=== PATIENT | female | born 1980 | race Caucasian/White ===

== ENCOUNTER 2019-03-03 13:59 | Inpatient (IN) | payer SELFPAY ==
--- NOTE | 2019-03-03 14:36 | ER Document Report ---
ED Medical Screen (RME) - General Chief Complaint: Skin Problem Stated Complaint: ABSCESS ON BACK Time Seen by Provider: 03/03/19 14:33 Mode of Arrival: Ambulatory Information source: Patient Notes: 38-year-old female presented to ED for a large lesion to the center of her middle back. She states she had a little bump about 4 days ago when she accidentally scratched it now she has a large lesion that is very swollen painful and erythematous. Patient is alert oriented respirations regular and unlabored speaking in full sentences. She states she does smoke half pack a day does not drink or do any drugs. She denies any past medical history of anything. I have greeted and performed a rapid initial assessment of this patient. A comprehensive ED assessment and evaluation of the patient, analysis of test results and completion of medical decision making process will be conducted by an additional ED providers. Physical Exam - Vital signs Vitals: Temp Pulse Resp BP Pulse Ox 97.8 F 106 H 16 120/88 H 97 03/03/19 14:03 03/03/19 14:03 03/03/19 14:03 03/03/19 14:03 03/03/19 14:03 Course - Vital Signs Vital signs: Temp Pulse Resp BP Pulse Ox 97.8 F 106 H 16 120/88 H 97 03/03/19 14:03 03/03/19 14:03 03/03/19 14:03 03/03/19 14:03 03/03/19 14:03
--- NOTE | 2019-03-03 15:25 | RADIOLOGY REPORT (SQ) ---
EXAM DESCRIPTION: U/S EXTREMITY NONVASCULAR LTD COMPLETED DATE/TIME: 03/03/2019 3:09 pm REASON FOR STUDY: lesion to middle of back COMPARISON: None. TECHNIQUE: Dynamic and static grayscale images acquired of the localized site of clinical concern an d recorded on PACS. Additional selected color Doppler and spectral images recorded. SITE OF CONCERN: Midline back LIMITATIONS: None. FINDINGS: SKIN AND SUBCUTANEOUS TISSUES: There is ill-defined heterogeneous echogenicity within the subcutaneous tissues of the midline back corresponding to the palpable abnormality. There is areas o f internal vascularity without definitive hyperemia. No evidence of well-formed focal drainable maia ection. OTHER: No other significant finding. IMPRESSION: Ill-defined heterogeneous area within the subcutaneous tissues of the midline back corre sponding to palpable abnormality. No evidence of well-formed drainable collection. Findings may rep resent cellulitis or phlegmon although underlying lesion is not entirely excluded. Recommend clinical correlation and short-term follow-up as required. TECHNICAL DOCUMENTATION: JOB ID: [id number] [employer]- All Rights Reserved Reading location - IP/workstation name: [email or web address]
[2019-03-03 15:58] LABS: ABSOLUTE BASOPHILS # (AUTO) 0.1 10^3/uL (0.0-0.2); ABSOLUTE EOSINOPHILS # (AUTO) 0.2 10^3/uL (0.0-0.6); ABSOLUTE LYMPHOCYTES (AUTO) 1.2 10^3/uL (0.5-4.7); ABSOLUTE MONOCYTES (AUTO) 0.8 10^3/uL (0.1-1.4); ABSOLUTE NEUT (AUTO) 14.6 10^3/uL (1.7-8.2); BASOPHILS % (AUTO) 0.3 % (0-2); EOSINOPHILS % (AUTO) 1.4 % (0-6); HEMATOCRIT 39.9 % (36.0-47.0); HEMOGLOBIN 13.6 g/dL (12.0-15.5); LYMPHOCYTES % (AUTO) 7.1 % (13-45); MEAN CORPUSCULAR HEMOGLOBIN 29.9 pg (27.0-33.4); MEAN CORPUSCULAR VOLUME 88 fl (80-97); MONOCYTES % (AUTO) 4.5 % (3-13); PLATELET COUNT 421 10^3/uL (150-450); RED BLOOD COUNT 4.54 10^6/uL (3.72-5.28); RED CELL DISTRIBUTION WIDTH 12.5 % (11.5-14.0); SEGMENTED NEUTROPHILS % (AUTO) 86.7 % (42-78); TOTAL CELLS COUNTED % (AUTO) 100 %; WHITE BLOOD COUNT 16.8 10^3/uL (4.0-10.5)
[2019-03-03 16:09] LABS: AMORPHOUS SEDIMENT,URINE TRACE /HPF; APPEARANCE,URINE CLOUDY; BILIRUBIN,URINE NEGATIVE (NEGATIVE); COLOR,URINE YELLOW; GLUCOSE, URINE NEGATIVE (NEGATIVE); KETONES,URINE NEGATIVE (NEGATIVE); LEUKOCYTE ESTERASE,URINE MODERATE (NEGATIVE); NITRITE,URINE NEGATIVE (NEGATIVE); PROTEIN,URINE NEGATIVE (NEGATIVE); URINE SPECIFIC GRAVITY 1.028; UROBILINOGEN,URINE NEGATIVE mg/dL (<2.0)
[2019-03-03 16:17] LABS: ALBUMIN 3.7 g/dL (3.5-5.0); ALKALINE PHOSPHATASE 80 U/L (38-126); ANION GAP 8 (5-19); ASPARTATE AMINO TRANSFERASE 13 U/L (14-36); BILIRUBIN,DIRECT 0.3 mg/dL (0.0-0.4); BILIRUBIN,TOTAL 0.3 mg/dL (0.2-1.3); BLOOD UREA NITROGEN 16 mg/dL (7-20); CALCIUM 9.1 mg/dL (8.4-10.2); CARBON DIOXIDE 28 mmol/L (22-30); CHLORIDE 103 mmol/L (98-107); GLUCOSE 79 mg/dL (75-110); POTASSIUM 4.1 mmol/L (3.6-5.0); TOTAL PROTEIN 6.9 g/dL (6.3-8.2)
[2019-03-03] MEDS ORDERED: MORPHINE SULFATE 10 MG/ML INJ IM ONE (18:24)
--- NOTE | 2019-03-03 18:25 | ER Document Report ---
HPI - HPI Time Seen by Provider: 03/03/19 14:33 Pain Level: 5 Notes: Patient is an otherwise healthy 30-year-old female presenting with concerns for abscess to her back. Patient reports this area initially started as a small pimple and has now evolved into a large area of pain. Patient denies history of abscesses in the past. Denies any IV drug use. Denies any fever but reports she has had chills. - REPRODUCTIVE Reproductive: DENIES: : Past Medical History - General Information source: Patient - Social History Smoking Status: Current Every Day Smoker Chew tobacco use (# tins/day): No Frequency of alcohol use: None Drug Abuse: None Family History: Reviewed & Not Pertinent Patient has suicidal ideation: No Patient has homicidal ideation: No - Medical History Medical History: Negative Surgical Hx: Negative - Immunizations Immunizations up to date: Yes Vertical Provider Document - CONSTITUTIONAL Notes: PHYSICAL EXAMINATION: GENERAL: Well-appearing, well-nourished and in no acute distress. HEAD: Atraumatic, normocephalic. EYES: Pupils equal round and reactive to light, extraocular movements intact, conjunctiva are normal. ENT: Nares patent, oropharynx clear without exudates. Moist mucous membranes. NECK: Normal range of motion, supple without lymphadenopathy LUNGS: Breath sounds clear to auscultation bilaterally and equal. No wheezes rales or rhonchi. HEART: Regular rate and rhythm without murmurs ABDOMEN: Soft, nontender, nondistended abdomen. No guarding, no rebound. No masses appreciated. Female : deferred Musculoskeletal: Normal range of motion, no pitting or edema. No cyanosis. NEUROLOGICAL: Cranial nerves grossly intact. Normal speech, normal gait. Normal sensory, motor exams PSYCH: Normal mood, normal affect. SKIN: Large area of induration with fluctuance noted to spinal area near T12. Erythema surrounding this. - INFECTION CONTROL TRAVEL OUTSIDE OF THE [place] IN LAST 30 DAYS: No Course - Re-evaluation Re-evalutation: Laboratory 03/03/19 03/03/19 03/03/19 14:36 14:36 14:36 WBC 16.8 H RBC 4.54 Hgb 13.6 Hct 39.9 MCV 88 MCH 29.9 MCHC 34.0 RDW 12.5 Plt Count 421 Lymph % (Auto) 7.1 L [place] % (Auto) 4.5 Eos % (Auto) 1.4 Baso % (Auto) 0.3 Absolute Neuts (auto) 14.6 H Absolute Lymphs (auto) 1.2 Absolute Monos (auto) 0.8 Absolute Eos (auto) 0.2 Absolute Basos (auto) 0.1 Seg Neutrophils % 86.7 H Sodium 139.2 Potassium 4.1 Chloride 103 Carbon Dioxide 28 Anion Gap 8 BUN 16 Creatinine 0.60 Est GFR ( Amer) > 60 Est GFR (MDRD) Non-Af > 60 Glucose 79 Calcium 9.1 Total Bilirubin 0.3 Direct Bilirubin 0.3 Neonat Total Bilirubin Not Reportable Neonat Direct Bilirubin Not Reportable Neonat Indirect Bili Not Reportable AST 13 L ALT 12 Alkaline Phosphatase 80 Total Protein 6.9 Albumin 3.7 Urine Color YELLOW Urine Appearance CLOUDY Urine pH 5.0 Ur Specific [place] 1.028 Urine Protein NEGATIVE Urine Glucose (UA) NEGATIVE Urine Ketones NEGATIVE Urine Blood NEGATIVE Urine Nitrite NEGATIVE Urine Bilirubin NEGATIVE Urine Urobilinogen NEGATIVE Ur Leukocyte Esterase MODERATE H Urine WBC (Auto) 35 Urine RBC (Auto) 22 Urine Bacteria (Auto) 1+ Squamous Epi Cells Auto 11 Amorphous Sediment Auto TRACE Urine Mucus (Auto) RARE Urine Ascorbic Acid NEGATIVE Extremity Ultrasound 03/03/19 14:37 IMPRESSION: Ill-defined heterogeneous area within the subcutaneous tissues of the midline back corresponding to palpable abnormality. No evidence of well- formed drainable collection. Findings may represent cellulitis or phlegmon although underlying lesion is not entirely excluded. Recommend clinical correlation and short-term follow-up as required. Abdomen/Pelvis CT 03/03/19 19:31 IMPRESSION: Inflammatory changes in the lower back soft tissues with a developing 3.4 cm fluid collection in the soft tissues posterior to the L2 level. Surgical list, Dr. Breen graciously accepted the patient for admission to his service. - Vital Signs Vital signs: Temp Pulse Resp BP Pulse Ox 97.5 F 98 16 103/66 97 03/03/19 17:32 03/03/19 17:32 03/03/19 17:32 03/03/19 17:32 03/03/19 17:32 - Laboratory Result Diagrams: 03/03/19 14:36 03/03/19 14:36 Laboratory results interpreted by me: 03/03/19 03/03/19 03/03/19 14:36 14:36 14:36 WBC 16.8 H Lymph % (Auto) 7.1 L Absolute Neuts (auto) 14.6 H Seg Neutrophils % 86.7 H AST 13 L Ur Leukocyte Esterase MODERATE H Discharge - Discharge Clinical Impression: Abscess Condition: Stable Disposition: ADMITTED INPATIENT Admitting Provider: Surgicalist - Dr. Breen
[2019-03-03] MEDS ORDERED: ONDANSETRON HCL INJ/PF 4 MG/2 ML SDV IV PRN (20:05)
--- NOTE | 2019-03-03 20:05 | PDOC H&P ---
History of Present Illness Admission Date/PCP: 03/03/19 Patient complains of: back pain History of Present Illness: RAJIV MCNAMARA is a 38 year old female healthy with a 2-3 day hx of back pain, redness, drainage, low grade fever which is identified as a low right back skin abscess. An US has been done and is negative for fluid collection, possible phlegmon. Social History Smoking Status: Current Every Day Smoker Electronic Cigarette use?: No Family History Family History: Reviewed & Not Pertinent Parental Family History Reviewed: No Children Family History Reviewed: No Sibling(s) Family History Reviewed.: No Medication/Allergy Home Medications: No Home Medications 03/03/19 Allergies/Adverse Reactions: No Known Allergies Allergy (Verified 03/03/19 14:34) Physical Exam Vital Signs: Temp Pulse Resp BP Pulse Ox 97.5 F 98 16 103/66 97 03/03/19 17:32 03/03/19 17:32 03/03/19 17:32 03/03/19 17:32 03/03/19 17:32 Intake & Output 03/02/19 03/03/19 03/04/19 06:59 06:59 06:59 Weight 39.5 kg General appearance: PRESENT: no acute distress Head exam: PRESENT: atraumatic Eye exam: PRESENT: EOMI Mouth exam: PRESENT: moist, neck supple Neck exam: PRESENT: full ROM Respiratory exam: PRESENT: clear to auscultation samir Cardiovascular exam: PRESENT: RRR GI/Abdominal exam: PRESENT: soft Skin exam: PRESENT: other - Back= large 10 cm diameter area in the rigt lower back with necrotic area, tender, edematous, erythematous Results Laboratory Results: 03/03/19 14:36 03/03/19 14:36 03/03/19 03/03/19 03/03/19 14:36 14:36 14:36 WBC 16.8 H RBC 4.54 Hgb 13.6 Hct 39.9 MCV 88 MCH 29.9 MCHC 34.0 RDW 12.5 Plt Count 421 Seg Neutrophils % 86.7 H Sodium 139.2 Potassium 4.1 Chloride 103 Carbon Dioxide 28 Anion Gap 8 BUN 16 Creatinine 0.60 Est GFR ( Amer) > 60 Glucose 79 Calcium 9.1 Total Bilirubin 0.3 AST 13 L Alkaline Phosphatase 80 Total Protein 6.9 Albumin 3.7 Urine Color YELLOW Urine Appearance CLOUDY Urine pH 5.0 Ur Specific [place] 1.028 Urine Protein NEGATIVE Urine Glucose (UA) NEGATIVE Urine Ketones NEGATIVE Urine Blood NEGATIVE Urine Nitrite NEGATIVE Ur Leukocyte Esterase MODERATE H Urine WBC (Auto) 35 Urine RBC (Auto) 22 Impressions: Extremity Ultrasound 03/03/19 14:37 IMPRESSION: Ill-defined heterogeneous area within the subcutaneous tissues of the midline back corresponding to palpable abnormality. No evidence of well- formed drainable collection. Findings may represent cellulitis or phlegmon although underlying lesion is not entirely excluded. Recommend clinical correlation and short-term follow-up as required. Assessment & Plan - Diagnosis (1) Pyogenic skin abscess due to bacteria Is this a current diagnosis for this admission?: Yes - Plan Summary Plan Summary: A/ Right lower back skin abscess Leukocytosis P/ Admit NPO after MN I&D right lower back skin abscess IV Vanco IV Zosyn
[2019-03-03] MEDS ORDERED: PIPERACILLIN/TAZOBACTAM 3.375 GM VIAL IV ONE (20:07)
[2019-03-03] MEDS ORDERED: VANCOMYCIN HCL INJ 1000 MG VIAL IV ONE (20:07)
[2019-03-03] MEDS ORDERED: VANCOMYCIN HCL 0 MG in DEXTROSE 5%-WATER 250 ML IV NR (20:15)
[2019-03-03] MEDS ORDERED: PIPERACILLIN/TAZOBACTAM 3.375 GM VIAL IV SCH (21:00)
[2019-03-03] MEDS: NORMAL SALINE 1000 ML 1,000 ML IV PRN (21:12)
--- NOTE | 2019-03-03 21:16 | RADIOLOGY REPORT (SQ) ---
CT ABDOMEN PELVIS WITH IV CONTRAST EXAM DATE: 03/03/2019 7:31 PM CDT HISTORY: Back pain. Evaluate for abscess. COMPARISON: None. TECHNIQUE: CT scan of the abdomen and pelvis was performed with IV contrast. This exam was performed according to our departmental dose-optimization program, which includes automated exposure control, adjustment of the mA and/or kV according to patient size and/or use of iterative reconstruction technique. FINDINGS: The lung bases are clear. No pleural or pericardial effusions. There is no hiatal hernia. The liver, spleen, pancreas, gallbladder, adrenal glands, and kidneys are unremarkable. No urinary stones are seen. The pelvic organs are also unremarkable. No small bowel obstruction. The appendix is not seen. There is no evidence of diverticulitis. No intraperitoneal free fluid or free air is identified. The aorta is normal caliber. No acute bony findings are seen. There is no pathologic body wall hernia. There is subcutaneous edema with skin thickening overlying the lower back soft tissues. Additionally, there is a 3.4 x 1.7 cm developing fluid collection near the midline soft tissues of the L2 level. This is best seen on axial images 25 and sagittal image 45. IMPRESSION: Inflammatory changes in the lower back soft tissues with a developing 3.4 cm fluid collection in the soft tissues posterior to the L2 level.
[2019-03-03] MEDS: MORPHINE SULFATE 10 MG/ML INJ IV PRN (21:57)
[2019-03-03] MEDS ORDERED: VANCOMYCIN HCL 750 MG in DEXTROSE 5%-WATER 250 ML IV ONE (22:00)
[2019-03-03] MEDS ORDERED: NICOTINE 14 MG/24 HR PATCH.TD24 TD ONE (22:45)
[2019-03-04] MEDS ORDERED: ACETAMINOPHEN 1,000 MG/100 ML RTUPB IV ONE ×2 (00:45→12:05)
[2019-03-04] MEDS: MORPHINE SULFATE 10 MG/ML INJ IV PRN ×2 (01:57→06:24)
[2019-03-04] MEDS: PIPERACILLIN SODIUM/TAZOBACTAM 3.375 GM in NORMAL SALINE 100 ML IV SCH ×4 (02:01→21:08)
[2019-03-04 06:16] LABS: ABSOLUTE BASOPHILS # (AUTO) 0.1 10^3/uL (0.0-0.2); ABSOLUTE EOSINOPHILS # (AUTO) 0.3 10^3/uL (0.0-0.6); ABSOLUTE MONOCYTES (AUTO) 0.8 10^3/uL (0.1-1.4); ABSOLUTE NEUT (AUTO) 16.1 10^3/uL (1.7-8.2); BASOPHILS % (AUTO) 0.3 % (0-2); EOSINOPHILS % (AUTO) 1.4 % (0-6); HEMATOCRIT 35.9 % (36.0-47.0); HEMOGLOBIN 12.2 g/dL (12.0-15.5); LYMPHOCYTES % (AUTO) 5.4 % (13-45); MEAN CORPUSCULAR HEMOGLOBIN 29.9 pg (27.0-33.4); MEAN CORPUSCULAR HGB CONC 34.1 g/dL (32.0-36.0); MEAN CORPUSCULAR VOLUME 88 fl (80-97); MONOCYTES % (AUTO) 4.7 % (3-13); PLATELET COUNT 348 10^3/uL (150-450); RED BLOOD COUNT 4.09 10^6/uL (3.72-5.28); RED CELL DISTRIBUTION WIDTH 12.3 % (11.5-14.0); SEGMENTED NEUTROPHILS % (AUTO) 88.2 % (42-78); TOTAL CELLS COUNTED % (AUTO) 100 %; WHITE BLOOD COUNT 18.3 10^3/uL (4.0-10.5)
[2019-03-04] MEDS: ACETAMINOPHEN 1,000 MG/100 ML RTUPB IV SCH ×4 (06:24→23:43)
[2019-03-04 06:39] LABS: ANION GAP 8 (5-19); BLOOD UREA NITROGEN 9 mg/dL (7-20); CALCIUM 8.6 mg/dL (8.4-10.2); CARBON DIOXIDE 27 mmol/L (22-30); CHLORIDE 101 mmol/L (98-107); GLUCOSE 120 mg/dL (75-110); POTASSIUM 3.9 mmol/L (3.6-5.0)
[2019-03-04] MEDS: NORMAL SALINE 1000 ML 1,000 ML IV PRN (08:31)
[2019-03-04] MEDS ORDERED: NICOTINE 14 MG/24 HR PATCH.TD24 TD SCH (10:00)
[2019-03-04] MEDS ORDERED: FENTANYL CITRATE INJ/PF 100 MCG/2 ML AMPUL ONE (10:33)
[2019-03-04] MEDS ORDERED: MIDAZOLAM 2 MG/2 ML INJ ONE (10:33)
[2019-03-04] MEDS ORDERED: PROPOFOL INJ 200 MG/20 ML VIAL IV ONE (10:34)
[2019-03-04] MEDS ORDERED: BUPIVACAINE HCL 0.5 % INJ/PF 30 ML SDV ONE (10:51)
[2019-03-04] MEDS ORDERED: DIPHENHYDRAMINE HCL 50 MG/ML VIAL IV PRN (11:23)
[2019-03-04] MEDS ORDERED: FENTANYL CITRATE INJ/PF 100 MCG/2 ML AMPUL IV PRN ×3 (11:23)
[2019-03-04] MEDS ORDERED: PROMETHAZINE HCL INJ 25 MG/1 ML VIAL IV PRN ×2 (11:23)
[2019-03-04] MEDS ORDERED: OXYCODONE-ACETAMINOPHEN 5-325 MG TABLET PO PRN ×2 (11:23)
[2019-03-04] MEDS ORDERED: MORPHINE SULFATE 10 MG/ML INJ IV PRN (11:23)
[2019-03-04] MEDS ORDERED: MEPERIDINE HCL/PF INJ 25 MG/1 ML DISP.SYRIN IV PRN (11:23)
[2019-03-04] MEDS ORDERED: NEOMY/BACITRAC ZN/POLY OINT 15 GM ONE (11:26)
--- NOTE | 2019-03-04 12:23 | Operative Report ---
Operative Report DATE OF SURGERY: 03/04/19 PREOPERATIVE DIAGNOSIS: Right lower back skin abscess POSTOPERATIVE DIAGNOSIS: Same, necrosis of right lower back skin OPERATION: Incision and drainage of right lower back abscess SURGEON: BELEM GONZALEZ ANESTHESIA: Other - 20 mL of 0.5% Marcaine TISSUE REMOVED OR ALTERED: Necrotic skin right lower back COMPLICATIONS: None ESTIMATED BLOOD LOSS: Less than 10 mL QUANTITATIVE BLOOD LOSS: 10 INTRAOPERATIVE FINDINGS: Large right lower back subcutaneous abscess with purulent fluid collection as well as necrosis of the overlying skin PROCEDURE: The procedure was done in the operating room, the patient was placed in a left lateral position with the right side elevated, the area of the abscess was prepped and draped in usual fashion. The proposed line of incision was outlined with a surgical marker, a skin incision was then made with a #15 blade, and a moderate amount of pus was obtained. This was sent for aerobic anaerobic culture and Gram stain. The incision was then extended further. The skin overlying the abscess cavity was found to be necrotic as well as the tissue below it. The necrotic skin was then excised with a final wound defect of approximately 4 cm in diameter. Following this, the abscess cavity was irrigated with normal saline, debrided with a curette, and local bleeders were cauterized. The abscess bed was packed with triple antibiotic ointment, covered with Surgicel and perform; dry 4 x 4's, ABDs, and tape were applied. The patient tolerated procedure well, was extubated, and transferred to the recovery room in satisfactory conditions.
[2019-03-04] MEDS: NEOMY/BACITRAC ZN/POLY OINT 15 GM TP SCH ×2 (15:21→21:09)
[2019-03-04] MEDS: KETOROLAC TROMETHAMINE INJ/PF 30 MG/1 ML SDV IV PRN ×2 (16:31→23:43)
[2019-03-04] MEDS ORDERED: LIDOCAINE 0.5% INJ-PF (5 MG/ML) 50 ML SDV ONE (16:42)
[2019-03-04] MEDS: DOCUSATE SODIUM 100 MG CAPSULE PO SCH (17:39)
[2019-03-04] MEDS ORDERED: NICOTINE 14 MG/24 HR PATCH.TD24 TD ONE (19:30)
[2019-03-04] MEDS: VANCOMYCIN HCL 750 MG in DEXTROSE 5%-WATER 250 ML IV SCH (21:08)
[2019-03-04] MEDS: TRAMADOL HCL 50 MG TABLET PO PRN (21:09)
[2019-03-05] MEDS: PIPERACILLIN SODIUM/TAZOBACTAM 3.375 GM in NORMAL SALINE 100 ML IV SCH ×4 (03:17→21:20)
[2019-03-05 04:32] LABS: ABSOLUTE EOSINOPHILS # (AUTO) 0.2 10^3/uL (0.0-0.6); ABSOLUTE LYMPHOCYTES (AUTO) 1.2 10^3/uL (0.5-4.7); ABSOLUTE MONOCYTES (AUTO) 0.6 10^3/uL (0.1-1.4); ABSOLUTE NEUT (AUTO) 10.1 10^3/uL (1.7-8.2); BASOPHILS % (AUTO) 0.3 % (0-2); EOSINOPHILS % (AUTO) 1.6 % (0-6); HEMATOCRIT 33.8 % (36.0-47.0); HEMOGLOBIN 11.3 g/dL (12.0-15.5); LYMPHOCYTES % (AUTO) 9.5 % (13-45); MEAN CORPUSCULAR HEMOGLOBIN 29.4 pg (27.0-33.4); MEAN CORPUSCULAR HGB CONC 33.5 g/dL (32.0-36.0); MEAN CORPUSCULAR VOLUME 88 fl (80-97); MONOCYTES % (AUTO) 5.3 % (3-13); PLATELET COUNT 325 10^3/uL (150-450); RED BLOOD COUNT 3.86 10^6/uL (3.72-5.28); RED CELL DISTRIBUTION WIDTH 12.2 % (11.5-14.0); SEGMENTED NEUTROPHILS % (AUTO) 83.3 % (42-78); TOTAL CELLS COUNTED % (AUTO) 100 %; WHITE BLOOD COUNT 12.1 10^3/uL (4.0-10.5)
[2019-03-05 04:54] LABS: ANION GAP 6 (5-19); BLOOD UREA NITROGEN 9 mg/dL (7-20); CALCIUM 8.4 mg/dL (8.4-10.2); CARBON DIOXIDE 27 mmol/L (22-30); CHLORIDE 105 mmol/L (98-107); GLUCOSE 96 mg/dL (75-110); POTASSIUM 3.9 mmol/L (3.6-5.0)
[2019-03-05] MEDS: ACETAMINOPHEN 1,000 MG/100 ML RTUPB IV SCH (06:01)
[2019-03-05] MEDS: NEOMY/BACITRAC ZN/POLY OINT 15 GM TP SCH ×3 (06:02→22:46)
[2019-03-05] MEDS: KETOROLAC TROMETHAMINE INJ/PF 30 MG/1 ML SDV IV PRN ×3 (06:06→18:07)
[2019-03-05] MEDS: DOCUSATE SODIUM 100 MG CAPSULE PO SCH ×2 (09:45→18:02)
[2019-03-05] MEDS: TRAMADOL HCL 50 MG TABLET PO PRN ×3 (09:56→21:36)
[2019-03-05] MEDS ORDERED: NEOMY/BACITRAC ZN/POLY OINT 15 GM TP SCH (10:00)
[2019-03-05] MEDS ORDERED: ENOXAPARIN SODIUM INJ 40 MG/0.4 ML DISP.SYRIN SUBCUT SCH (10:00)
[2019-03-05] MEDS ORDERED: LIDOCAINE 1% INJ-PF (10 MG/ML) 30 ML SDV ONE (11:18)
--- NOTE | 2019-03-05 11:38 | PDOC PROGRESS REPORT ---
Subjective Progress Note for:: 03/05/19 Subjective:: She is comfortable, tearful Reason For Visit: BACK SKIN ABSCESS Physical Exam Vital Signs: Temp Pulse Resp BP Pulse Ox 98.0 F 82 17 103/62 100 03/05/19 07:16 03/05/19 07:16 03/05/19 07:16 03/05/19 07:16 03/05/19 07:16 Intake & Output 03/04/19 03/05/19 03/06/19 06:59 06:59 06:59 Intake Total 881 4570 Output Total 440 Balance 881 4130 Weight 43.2 kg 45.3 kg General appearance: PRESENT: no acute distress Skin exam: PRESENT: other - Back skin = large surgical defect about 4 cm in diameter, granulating, moderate amount of redness at the edges of the wound, no drainage, areas of necrotic tissue in the upper edges of the wound and the in the wound bed Results Laboratory Results: 03/05/19 03:56 03/05/19 03:56 03/05/19 03/05/19 03:56 03:56 WBC 12.1 H RBC 3.86 Hgb 11.3 L Hct 33.8 L MCV 88 MCH 29.4 MCHC 33.5 RDW 12.2 Plt Count 325 Seg Neutrophils % 83.3 H Sodium 138.1 Potassium 3.9 Chloride 105 Carbon Dioxide 27 Anion Gap 6 BUN 9 Creatinine 0.55 Est GFR ( Amer) > 60 Glucose 96 Calcium 8.4 Impressions: Extremity Ultrasound 03/03/19 14:37 IMPRESSION: Ill-defined heterogeneous area within the subcutaneous tissues of the midline back corresponding to palpable abnormality. No evidence of well- formed drainable collection. Findings may represent cellulitis or phlegmon although underlying lesion is not entirely excluded. Recommend clinical correlation and short-term follow-up as required. Abdomen/Pelvis CT 03/03/19 19:31 IMPRESSION: Inflammatory changes in the lower back soft tissues with a developing 3.4 cm fluid collection in the soft tissues posterior to the L2 level. Assessment & Plan - Diagnosis (1) Pyogenic skin abscess due to bacteria Is this a current diagnosis for this admission?: Yes - Time Time Spent with patient: 35 or more minutes - Plan Summary Plan Summary: Assessment: Postop day #1 following incision and drainage of the large back subcutaneous abscess Vital signs stable afebrile Cultures pending; Gram stain of wound obtained yesterday and surgery showed gram-positive cocci with identification pending On physical exam, there are small areas of tissue necrosis of the edge of the wound as well as the wound bed Plan: Hep-Lock IV fluids Continue current IV antibiotics (Zosyn and vancomycin) Debrided wound at bedside today Patient will be on isolation until the final cultures are available and MRSA infection is ruled out
--- NOTE | 2019-03-05 11:42 | Operative Report ---
Operative Report DATE OF SURGERY: 03/05/19 PREOPERATIVE DIAGNOSIS: Subcutaneous back skin abscess right side POSTOPERATIVE DIAGNOSIS: Same OPERATION: Debridement of subcutaneous tissue sharply of the back skin measuring 3 x 2 cm SURGEON: BELEM GONZALEZ ANESTHESIA: Local - [place] 1% lidocaine without epinephrine TISSUE REMOVED OR ALTERED: Skin and necrotic tissue COMPLICATIONS: None ESTIMATED BLOOD LOSS: Less than 2 mL INTRAOPERATIVE FINDINGS: Necrotic tissue of the skin of the upper part of the wound drainage and bed PROCEDURE: The procedure was done at bedside, back abscess site was prepped with Betadine, the area to be debrided were infiltrated with lidocaine. After this, using scissors with sharp debridement of the necrotic tissue of the upper edge of the surgical wound as well as areas of the wound beds were debrided with scissors. Topical antibiotic, sterile dressings, ABD and tape were applied.
[2019-03-05] MEDS: ACETAMINOPHEN 325 MG TABLET PO SCH ×4 (12:04→22:37)
[2019-03-05] MEDS: NICOTINE 14 MG/24 HR PATCH.TD24 TD SCH (18:03)
[2019-03-05] MEDS: VANCOMYCIN HCL 750 MG in DEXTROSE 5%-WATER 250 ML IV SCH (22:37)
[2019-03-06] MEDS: PIPERACILLIN SODIUM/TAZOBACTAM 3.375 GM in NORMAL SALINE 100 ML IV SCH ×4 (02:25→21:16)
[2019-03-06] MEDS: ACETAMINOPHEN 325 MG TABLET PO SCH ×6 (02:26→21:17)
[2019-03-06] MEDS: KETOROLAC TROMETHAMINE INJ/PF 30 MG/1 ML SDV IV PRN ×3 (05:06→21:17)
[2019-03-06 05:31] LABS: ABSOLUTE BASOPHILS # (AUTO) 0.1 10^3/uL (0.0-0.2); ABSOLUTE EOSINOPHILS # (AUTO) 0.3 10^3/uL (0.0-0.6); ABSOLUTE LYMPHOCYTES (AUTO) 1.3 10^3/uL (0.5-4.7); ABSOLUTE MONOCYTES (AUTO) 0.4 10^3/uL (0.1-1.4); BASOPHILS % (AUTO) 0.7 % (0-2); HEMATOCRIT 26.2 % (36.0-47.0); LYMPHOCYTES % (AUTO) 18.8 % (13-45); MEAN CORPUSCULAR HEMOGLOBIN 30.6 pg (27.0-33.4); MEAN CORPUSCULAR HGB CONC 35.1 g/dL (32.0-36.0); MEAN CORPUSCULAR VOLUME 87 fl (80-97); MONOCYTES % (AUTO) 6.3 % (3-13); PLATELET COUNT 321 10^3/uL (150-450); RED CELL DISTRIBUTION WIDTH 12.2 % (11.5-14.0); SEGMENTED NEUTROPHILS % (AUTO) 70.2 % (42-78); TOTAL CELLS COUNTED % (AUTO) 100 %; WHITE BLOOD COUNT 7.1 10^3/uL (4.0-10.5)
[2019-03-06] MEDS: NEOMY/BACITRAC ZN/POLY OINT 15 GM TP SCH ×3 (05:42→23:28)
[2019-03-06 05:44] LABS: ANION GAP 5 (5-19); BLOOD UREA NITROGEN 11 mg/dL (7-20); CALCIUM 8.4 mg/dL (8.4-10.2); CARBON DIOXIDE 29 mmol/L (22-30); CHLORIDE 103 mmol/L (98-107); GLUCOSE 106 mg/dL (75-110); POTASSIUM 3.6 mmol/L (3.6-5.0)
[2019-03-06 05:50] LABS: HEMOGLOBIN 9.2 g/dL (12.0-15.5)
[2019-03-06] MEDS ORDERED: ONDANSETRON HCL INJ/PF 4 MG/2 ML SDV IV PRN (09:00)
[2019-03-06] MEDS: DOCUSATE SODIUM 100 MG CAPSULE PO SCH ×2 (09:41→18:54)
[2019-03-06] MEDS: ENOXAPARIN SODIUM INJ 30 MG/0.3 ML DISP.SYRIN SUBCUT SCH (09:42)
[2019-03-06] MEDS: TRAMADOL HCL 50 MG TABLET PO PRN (09:49)
--- NOTE | 2019-03-06 10:21 | PDOC PROGRESS REPORT ---
Subjective Progress Note for:: 03/06/19 Subjective:: Patient is lying in bed; has no specific complaints. Reason For Visit: BACK SKIN ABSCESS Physical Exam Vital Signs: Temp Pulse Resp BP Pulse Ox 98.5 F 79 15 99/54 L 99 03/06/19 08:00 03/06/19 08:00 03/06/19 08:00 03/06/19 08:00 03/06/19 08:00 Intake & Output 03/05/19 03/06/19 03/07/19 06:59 06:59 06:59 Intake Total 4570 1450 Output Total 440 Balance 4130 1450 Weight 45.3 kg 44.3 kg General appearance: PRESENT: no acute distress Skin exam: PRESENT: other - Patient rolled left lateral cubitus position. Dressing, packing and hemostatic agents removed. The bed of the wound is reasonably clean, no obvious necrotic tissue. Surrounding skin and subcutaneous tissue remains edematous. No vicky cellulitis. Results Laboratory Results: 03/06/19 04:15 03/06/19 04:15 03/06/19 03/06/19 04:15 04:15 WBC 7.1 RBC 3.00 L Hgb 9.2 L D Hct 26.2 L MCV 87 MCH 30.6 MCHC 35.1 RDW 12.2 Plt Count 321 Seg Neutrophils % 70.2 Sodium 137.4 Potassium 3.6 Chloride 103 Carbon Dioxide 29 Anion Gap 5 BUN 11 Creatinine 0.65 Est GFR ( Amer) > 60 Glucose 106 Calcium 8.4 Impressions: Extremity Ultrasound 03/03/19 14:37 IMPRESSION: Ill-defined heterogeneous area within the subcutaneous tissues of the midline back corresponding to palpable abnormality. No evidence of well- formed drainable collection. Findings may represent cellulitis or phlegmon although underlying lesion is not entirely excluded. Recommend clinical correlation and short-term follow-up as required. Abdomen/Pelvis CT 03/03/19 19:31 IMPRESSION: Inflammatory changes in the lower back soft tissues with a developing 3.4 cm fluid collection in the soft tissues posterior to the L2 level. Assessment & Plan - Diagnosis (1) Abscess Is this a current diagnosis for this admission?: Yes Plan: Impression: Unusual central back abscess involving skin and subcutaneous tissue status post serial debridements, now postoperative day 1, and 2, with wound cleaning up, no indication for further mechanical debridement today. Recommendations: 1. Patient growing positive cocci, city and sensitivities pending; we will keep patient on IV vancomycin and Zosyn. 2. The wound at bedside with a moist gauze wet-to-dry. This should suffice. 3. We will have her get into the shower and ensure she is on a stool softener. - Time Time Spent with patient: 15-24 minutes
[2019-03-06] MEDS: NICOTINE 14 MG/24 HR PATCH.TD24 TD SCH (18:53)
[2019-03-06] MEDS: VANCOMYCIN HCL 750 MG in DEXTROSE 5%-WATER 250 ML IV SCH (21:17)
[2019-03-06 21:58] LABS: VANCOMYCIN,TROUGH < 5.0 ug/mL (5.0-20.0)
[2019-03-07] MEDS: ACETAMINOPHEN 325 MG TABLET PO SCH (03:00)
[2019-03-07] MEDS: PIPERACILLIN SODIUM/TAZOBACTAM 3.375 GM in NORMAL SALINE 100 ML IV SCH ×2 (03:01→08:54)
[2019-03-07 04:52] LABS: ABSOLUTE EOSINOPHILS # (AUTO) 0.2 10^3/uL (0.0-0.6); ABSOLUTE LYMPHOCYTES (AUTO) 1.2 10^3/uL (0.5-4.7); ABSOLUTE MONOCYTES (AUTO) 0.3 10^3/uL (0.1-1.4); ABSOLUTE NEUT (AUTO) 3.9 10^3/uL (1.7-8.2); BASOPHILS % (AUTO) 0.8 % (0-2); HEMATOCRIT 25.4 % (36.0-47.0); HEMOGLOBIN 8.8 g/dL (12.0-15.5); LYMPHOCYTES % (AUTO) 21.4 % (13-45); MEAN CORPUSCULAR HEMOGLOBIN 30.1 pg (27.0-33.4); MEAN CORPUSCULAR HGB CONC 34.8 g/dL (32.0-36.0); MEAN CORPUSCULAR VOLUME 87 fl (80-97); PLATELET COUNT 348 10^3/uL (150-450); RED BLOOD COUNT 2.94 10^6/uL (3.72-5.28); RED CELL DISTRIBUTION WIDTH 12.2 % (11.5-14.0); SEGMENTED NEUTROPHILS % (AUTO) 68.8 % (42-78); TOTAL CELLS COUNTED % (AUTO) 100 %; WHITE BLOOD COUNT 5.6 10^3/uL (4.0-10.5)
[2019-03-07 05:09] LABS: BLOOD UREA NITROGEN 10 mg/dL (7-20); CALCIUM 8.4 mg/dL (8.4-10.2); GLUCOSE 95 mg/dL (75-110); POTASSIUM 3.8 mmol/L (3.6-5.0)
[2019-03-07 05:15] LABS: CARBON DIOXIDE 33 mmol/L (22-30); CHLORIDE 100 mmol/L (98-107)
[2019-03-07 05:25] LABS: ANION GAP 4 (5-19)
[2019-03-07] MEDS: NEOMY/BACITRAC ZN/POLY OINT 15 GM TP SCH ×3 (05:31→21:06)
[2019-03-07] MEDS: DOCUSATE SODIUM 100 MG CAPSULE PO SCH ×2 (09:00→17:26)
[2019-03-07] MEDS: ENOXAPARIN SODIUM INJ 30 MG/0.3 ML DISP.SYRIN SUBCUT SCH (09:00)
--- NOTE | 2019-03-07 12:41 | PDOC PROGRESS REPORT ---
Subjective Progress Note for:: 03/07/19 Subjective:: No complaints Reason For Visit: BACK SKIN ABSCESS Physical Exam Vital Signs: Temp Pulse Resp BP Pulse Ox 99.3 F 86 16 101/68 100 03/07/19 08:00 03/07/19 08:00 03/07/19 08:00 03/07/19 08:00 03/07/19 08:00 Intake & Output 03/06/19 03/07/19 03/08/19 06:59 06:59 06:59 Intake Total 1450 1770 Balance 1450 1770 Weight 44.3 kg 45.2 kg General appearance: PRESENT: no acute distress Skin exam: PRESENT: other - Back skin abscess site = bleeding, no odor, no drainage, wound edges clean, without erythema or edema Results Laboratory Results: 03/07/19 03:32 03/07/19 03:32 03/07/19 03/07/19 03:32 03:32 WBC 5.6 RBC 2.94 L Hgb 8.8 L Hct 25.4 L MCV 87 MCH 30.1 MCHC 34.8 RDW 12.2 Plt Count 348 Seg Neutrophils % 68.8 Sodium 137.3 Potassium 3.8 Chloride 100 Carbon Dioxide 33 H Anion Gap 4 L BUN 10 Creatinine 0.64 Est GFR ( Amer) > 60 Glucose 95 Calcium 8.4 03/04/19 11:20 Back - Right Side Abscess Gram Stain - Final 03/04/19 11:20 Back - Right Side Abscess Wound Culture - Final Mrsa (Meth Resis Staph Aureus) No Anaerobic Organisms Impressions: Extremity Ultrasound 03/03/19 14:37 IMPRESSION: Ill-defined heterogeneous area within the subcutaneous tissues of the midline back corresponding to palpable abnormality. No evidence of well- formed drainable collection. Findings may represent cellulitis or phlegmon although underlying lesion is not entirely excluded. Recommend clinical correlation and short-term follow-up as required. Abdomen/Pelvis CT 03/03/19 19:31 IMPRESSION: Inflammatory changes in the lower back soft tissues with a developing 3.4 cm fluid collection in the soft tissues posterior to the L2 level. Assessment & Plan - Diagnosis (1) Pyogenic skin abscess due to bacteria Is this a current diagnosis for this admission?: Yes (2) MRSA (methicillin resistant Staphylococcus aureus) infection Is this a current diagnosis for this admission?: Yes - Time Time Spent with patient: 15-24 minutes - Plan Summary Plan Summary: Assessment: Postoperative day #3 following incision and drainage and wide debridement of right lower back subcutaneous abscess Wound cultures negative for MRSA Patient currently on Zosyn and vancomycin Right back wound appears to be clean, granulating, without evidence of cellulitis Plan: Discontinued Zosyn Continue vancomycin Plan to apply WoundVAC and discharge patient home with it in 1 to 2 days Patient will be discharged home on oral antibiotics such as Bactrim/clindamycin
[2019-03-07] MEDS: VANCOMYCIN HCL 750 MG in DEXTROSE 5%-WATER 250 ML IV SCH (17:20)
[2019-03-07] MEDS: TRAMADOL HCL 50 MG TABLET PO PRN (17:20)
[2019-03-07] MEDS: NICOTINE 14 MG/24 HR PATCH.TD24 TD SCH (17:20)
[2019-03-08 06:30] LABS: ABSOLUTE BASOPHILS # (AUTO) 0.1 10^3/uL (0.0-0.2); ABSOLUTE EOSINOPHILS # (AUTO) 0.2 10^3/uL (0.0-0.6); ABSOLUTE LYMPHOCYTES (AUTO) 1.1 10^3/uL (0.5-4.7); ABSOLUTE MONOCYTES (AUTO) 0.3 10^3/uL (0.1-1.4); ABSOLUTE NEUT (AUTO) 3.5 10^3/uL (1.7-8.2); BASOPHILS % (AUTO) 1.1 % (0-2); EOSINOPHILS % (AUTO) 4.1 % (0-6); HEMATOCRIT 24.8 % (36.0-47.0); HEMOGLOBIN 8.7 g/dL (12.0-15.5); LYMPHOCYTES % (AUTO) 21.9 % (13-45); MEAN CORPUSCULAR HEMOGLOBIN 30.3 pg (27.0-33.4); MEAN CORPUSCULAR HGB CONC 35.2 g/dL (32.0-36.0); MEAN CORPUSCULAR VOLUME 86 fl (80-97); MONOCYTES % (AUTO) 5.9 % (3-13); PLATELET COUNT 336 10^3/uL (150-450); RED BLOOD COUNT 2.88 10^6/uL (3.72-5.28); RED CELL DISTRIBUTION WIDTH 12.1 % (11.5-14.0); TOTAL CELLS COUNTED % (AUTO) 100 %; WHITE BLOOD COUNT 5.3 10^3/uL (4.0-10.5)
[2019-03-08] MEDS: NEOMY/BACITRAC ZN/POLY OINT 15 GM TP SCH (06:40)
[2019-03-08] MEDS: TRAMADOL HCL 50 MG TABLET PO PRN (06:41)
[2019-03-08] MEDS: VANCOMYCIN HCL 750 MG in DEXTROSE 5%-WATER 250 ML IV SCH (06:41)
[2019-03-08 06:42] LABS: ANION GAP 6 (5-19); BLOOD UREA NITROGEN 10 mg/dL (7-20); CALCIUM 8.9 mg/dL (8.4-10.2); CARBON DIOXIDE 32 mmol/L (22-30); CHLORIDE 100 mmol/L (98-107); GLUCOSE 83 mg/dL (75-110)
[2019-03-08] MEDS: DOCUSATE SODIUM 100 MG CAPSULE PO SCH (09:04)
[2019-03-08] MEDS: ENOXAPARIN SODIUM INJ 30 MG/0.3 ML DISP.SYRIN SUBCUT SCH (09:04)
[2019-03-08 09:05] VITALS: BP 111/62
--- NOTE | 2019-03-08 09:32 | PDOC PROGRESS REPORT ---
Subjective Progress Note for:: 03/08/19 Subjective:: Patient has no complaints Reason For Visit: BACK SKIN ABSCESS Physical Exam Vital Signs: Temp Pulse Resp BP Pulse Ox 97.8 F 74 12 111/62 100 03/08/19 08:00 03/08/19 08:00 03/08/19 08:00 03/08/19 08:00 03/08/19 08:00 Intake & Output 03/07/19 03/08/19 03/09/19 06:59 06:59 06:59 Intake Total 1770 930 150 Balance 1770 930 150 Weight 45.2 kg 44.9 kg Skin exam: PRESENT: other - Right back skin abscess site sign area granulating, no edema, no drainage, no odor, no erythema of the edges Results Laboratory Results: 03/08/19 05:01 03/08/19 05:01 03/08/19 03/08/19 05:01 05:01 WBC 5.3 RBC 2.88 L Hgb 8.7 L Hct 24.8 L MCV 86 MCH 30.3 MCHC 35.2 RDW 12.1 Plt Count 336 Seg Neutrophils % 67.0 Sodium 138.1 Potassium 4.0 Chloride 100 Carbon Dioxide 32 H Anion Gap 6 BUN 10 Creatinine 0.59 Est GFR ( Amer) > 60 Glucose 83 Calcium 8.9 03/04/19 11:20 Back - Right Side Abscess Gram Stain - Final 03/04/19 11:20 Back - Right Side Abscess Wound Culture - Final Mrsa (Meth Resis Staph Aureus) No Anaerobic Organisms Impressions: Extremity Ultrasound 03/03/19 14:37 IMPRESSION: Ill-defined heterogeneous area within the subcutaneous tissues of the midline back corresponding to palpable abnormality. No evidence of well- formed drainable collection. Findings may represent cellulitis or phlegmon although underlying lesion is not entirely excluded. Recommend clinical correlation and short-term follow-up as required. Abdomen/Pelvis CT 03/03/19 19:31 IMPRESSION: Inflammatory changes in the lower back soft tissues with a developing 3.4 cm fluid collection in the soft tissues posterior to the L2 level. Assessment & Plan - Diagnosis (1) Pyogenic skin abscess due to bacteria Is this a current diagnosis for this admission?: Yes (2) MRSA (methicillin resistant Staphylococcus aureus) infection Is this a current diagnosis for this admission?: Yes - Time Time Spent with patient: 25-34 minutes - Plan Summary Plan Summary: Assessment: Postoperative day #5 follow incision and drainage and debridement of the right lower back MRSA abscess Patient has been treated with IV vancomycin throughout the hospitalization with improvement of the abscess site Examination of the abscess site today reveals a surgical wound granulating m easuring about 5 cm in diameter Plan: Discharge to home today Normal saline wet-to-dry dressing changes twice a day to be done by the patient's family Bactrim 1 tab by mouth twice a day for 10 days Patient can shower Regular diet Activities as tolerated Follow-up refused surgical office with OLGA Dickerson in 2 weeks Tylenol as needed for pain
--- NOTE | 2019-03-08 09:48 | PDOC DISCHARGE SUMMARY ---
General - Admit/Disc Date/PCP Admission Date/Primary Care Provider: 03/03/19 20:17 Discharge Date: 03/08/19 - Discharge Diagnosis Final Diagnosis: Right lower back MRSA skin abscess - Assessment Summary: The patient is a healthy 38-year-old female admitted on March 03, 2019 for right lower back skin abscess. She underwent surgery on the same day with incision and drainage of the abscess as well as a wide debridement of the skin over the abscess because of necrosis. Cultures were obtained. She was started on vancomycin and Zosyn. Cultures results were significant for MRSA and Zosyn was discontinued, while vancomycin was continued. She was then discharged on March 08, 2019 with instructions to replace the bandages with with normal saline wet-to-dry twice a day as well as to apply topical triple antibiotic ointment to the wound bed twice a day for 5 days. She was given Bactrim double strength 1 tab by mouth twice a day for 10 days: Tylenol for pain; nicotine patc hes. She was given a regular diet, activities as tolerated, shower only until wound is fully closed; return to the surgery office in 2 weeks for wound check. - Additional Information Resuscitation Status: Full Code Discharge Diet: Regular Discharge Activity: Activity As Tolerated, No tub bath - Until wound is open, Other - Daily shower allowed soon after discharge from hospital: remove bandages, shower, replace bandages afterward Referrals: [facility] [Provider Group] (Follow-up in 2 weeks.) Prescriptions: Neomy Sulf/Bacitrac Zn/Poly [Neosporin Ointment 15 gm] 1 applic TP BID #2 tube Nicotine [Nicoderm 14 mg/24 Hr Transdermal Patch] 1 each TD QPM #30 patch.td24 Sulfamethoxazole/Trimethoprim [Septra-Ds 800-160 mg Tablet] 1 tab PO BID #20 tablet Home Medications: Neomy Sulf/Bacitrac Zn/Poly [Neosporin Ointment 15 gm] 1 applic TP BID #2 tube 03/08/19 Nicotine [Nicoderm 14 mg/24 Hr Transdermal Patch] 1 each TD QPM #30 patch.td24 03/08/19 Sulfamethoxazole/Trimethoprim [Septra-Ds 800-160 mg Tablet] 1 tab PO BID #20 tablet 03/08/19 History of Present Illiness History of Present Illness: RAJIV MCNAMARA is a 38 year old female healthy with a 2-3 day hx of back pain, redness, drainage, low grade fever which is identified as a low right back skin abscess. An US has been done and is negative for fluid collection, possible phlegmon. Physical Exam Vital Signs: Temp Pulse Resp BP Pulse Ox 97.8 F 74 12 111/62 100 03/08/19 08:00 03/08/19 08:00 03/08/19 08:00 03/08/19 08:00 03/08/19 08:00 Intake & Output 03/07/19 03/08/19 03/09/19 06:59 06:59 06:59 Intake Total 1770 930 150 Balance 1770 930 150 Weight 45.2 kg 44.9 kg Results Laboratory Results: WBC 5.3 10^3/uL (4.0-10.5) 03/08/19 05:01 RBC 2.88 10^6/uL (3.72-5.28) L 03/08/19 05:01 Hgb 8.7 g/dL (12.0-15.5) L 03/08/19 05:01 Hct 24.8 % (36.0-47.0) L 03/08/19 05:01 MCV 86 fl (80-97) 03/08/19 05:01 MCH 30.3 pg (27.0-33.4) 03/08/19 05:01 MCHC 35.2 g/dL (32.0-36.0) 03/08/19 05:01 RDW 12.1 % (11.5-14.0) 03/08/19 05:01 Plt Count 336 10^3/uL (150-450) 03/08/19 05:01 Lymph % (Auto) 21.9 % (13-45) 03/08/19 05:01 [place] % (Auto) 5.9 % (3-13) 03/08/19 05:01 Eos % (Auto) 4.1 % (0-6) 03/08/19 05:01 Baso % (Auto) 1.1 % (0-2) 03/08/19 05:01 Absolute Neuts (auto) 3.5 10^3/uL (1.7-8.2) 03/08/19 05:01 Absolute Lymphs (auto) 1.1 10^3/uL (0.5-4.7) 03/08/19 05:01 Absolute Monos (auto) 0.3 10^3/uL (0.1-1.4) 03/08/19 05:01 Absolute Eos (auto) 0.2 10^3/uL (0.0-0.6) 03/08/19 05:01 Absolute Basos (auto) 0.1 10^3/uL (0.0-0.2) 03/08/19 05:01 Seg Neutrophils % 67.0 % (42-78) 03/08/19 05:01 Sodium 138.1 mmol/L (137-145) 03/08/19 05:01 Potassium 4.0 mmol/L (3.6-5.0) 03/08/19 05:01 Chloride 100 mmol/L (98-107) 03/08/19 05:01 Carbon Dioxide 32 mmol/L (22-30) H 03/08/19 05:01 Anion Gap 6 (5-19) 03/08/19 05:01 BUN 10 mg/dL (7-20) 03/08/19 05:01 Creatinine 0.59 mg/dL (0.52-1.25) 03/08/19 05:01 Est GFR ( Amer) > 60 (>60) 03/08/19 05:01 Est GFR (MDRD) Non-Af > 60 (>60) 03/08/19 05:01 Glucose 83 mg/dL (75-110) 03/08/19 05:01 Calcium 8.9 mg/dL (8.4-10.2) 03/08/19 05:01 Total Bilirubin 0.3 mg/dL (0.2-1.3) 03/03/19 14:36 Direct Bilirubin 0.3 mg/dL (0.0-0.4) 03/03/19 14:36 Neonat Total Bilirubin Not Reportable 03/03/19 14:36 Neonat Direct Bilirubin Not Reportable 03/03/19 14:36 Neonat Indirect Bili Not Reportable 03/03/19 14:36 AST 13 U/L (14-36) L 03/03/19 14:36 ALT 12 U/L (<35) 03/03/19 14:36 Alkaline Phosphatase 80 U/L (38-126) 03/03/19 14:36 Total Protein 6.9 g/dL (6.3-8.2) 03/03/19 14:36 Albumin 3.7 g/dL (3.5-5.0) 03/03/19 14:36 Serum HCG, Qual NEGATIVE (NEGATIVE) 03/04/19 05:24 Urine Color YELLOW 03/03/19 14:36 Urine Appearance CLOUDY 03/03/19 14:36 Urine pH 5.0 (5.0-9.0) 03/03/19 14:36 Ur Specific [place] 1.028 03/03/19 14:36 Urine Protein NEGATIVE mg/dL (NEGATIVE) 03/03/19 14:36 Urine Glucose (UA) NEGATIVE mg/dL (NEGATIVE) 03/03/19 14:36 Urine Ketones NEGATIVE mg/dL (NEGATIVE) 03/03/19 14:36 Urine Blood NEGATIVE (NEGATIVE) 03/03/19 14:36 Urine Nitrite NEGATIVE (NEGATIVE) 03/03/19 14:36 Urine Bilirubin NEGATIVE (NEGATIVE) 03/03/19 14:36 Urine Urobilinogen NEGATIVE mg/dL (<2.0) 03/03/19 14:36 Ur Leukocyte Esterase MODERATE (NEGATIVE) H 03/03/19 14:36 Urine WBC (Auto) 35 /HPF 03/03/19 14:36 Urine RBC (Auto) 22 /HPF 03/03/19 14:36 Urine Bacteria (Auto) 1+ /HPF 03/03/19 14:36 Squamous Epi Cells Auto 11 /HPF 03/03/19 14:36 Amorphous Sediment Auto TRACE /HPF 03/03/19 14:36 Urine Mucus (Auto) RARE /LPF 03/03/19 14:36 Urine Ascorbic Acid NEGATIVE (NEGATIVE) 03/03/19 14:36 Time Trough Drawn 211403/06/19 21:15 Vancomycin Trough < 5.0 ug/mL (5.0-20.0) L 03/06/19 21:15 Impressions: Extremity Ultrasound 03/03/19 14:37 IMPRESSION: Ill-defined heterogeneous area within the subcutaneous tissues of the midline back corresponding to palpable abnormality. No evidence of well- formed drainable collection. Findings may represent cellulitis or phlegmon although underlying lesion is not entirely excluded. Recommend clinical correlation and short-term follow-up as required. Abdomen/Pelvis CT 03/03/19 19:31 IMPRESSION: Inflammatory changes in the lower back soft tissues with a developing 3.4 cm fluid collection in the soft tissues posterior to the L2 level.
[2019-03-08] MEDS ORDERED: SULFAMETHOXAZOLE/TRIMETHOPRIM 800-160 MG TABLET PO SCH (10:00)
== END 2019-03-08 11:45 | disposition home or self-care (01) | DRG 572 ==
LOC: ER 13:59 → EH 20:17 → 4N 21:38
PROVIDERS: ADMIT Surgery; ATTEND Surgery
PROC: 0J973ZZ Drainage of Back Subcutaneous Tissue and Fascia, Percutaneous Approach (ICD-10-PCS; 2019-03-04)
PROC: 0JB70ZZ Excision of Back Subcutaneous Tissue and Fascia, Open Approach (ICD-10-PCS; principal; 2019-03-05)
DX: L02.212 Cutaneous abscess of back [any part, except buttock and flank] (principal); B95.62 Methicillin resistant Staphylococcus aureus infection as the cause of diseases classified elsewhere; F17.210 Nicotine dependence, cigarettes, uncomplicated
CPT/HCPCS: 300; 36415; 74177; 76882; 80048; 80053; 80202; 81001; 84703; 85025; 87040; 87070; 87075; 87077; 87186; 87205; 88304; 94799; 96374; 99284; J0131; J1650; J1885; J2250; J2270; J2543; J2704; J3010; J3370; J3490; J7030; J7050; J7060